=== PATIENT | female | born 1985 | race African-American/Black ===

== ENCOUNTER 2017-12-13 10:18 | Emergency (ER) | payer OTHER ==
[2017-12-13] MEDS: IBUPROFEN 200 MG TAB PO (11:03)
== END 2017-12-13 11:45 | disposition home or self-care (01) ==
LOC: FTE 10:18
DX: R07.89 Other chest pain (principal)
CPT/HCPCS: 71045; 81025; 93005; 99284-25

== ENCOUNTER 2019-03-01 10:53 | Emergency (ER) | payer MEDICAID, OTHER ==
[2019-03-01] MEDS: DIPHTH/TET/ACEL PERTUSS (ADULT) 0.5 ML VIAL IM* (11:27)
[2019-03-01] MEDS: KETOROLAC 60 MG INJ IM (11:34)
[2019-03-01] MEDS: BACITRACIN 0.5%/ZINC 28.35 GM OINT TOP (13:16)
[2019-03-01] MEDS: BACITRACIN 0.9 GM OINT TOP (13:16)
== END 2019-03-01 13:39 | disposition home or self-care (01) ==
LOC: FTE 10:53
DX: S61.210A Laceration without foreign body of right index finger without damage to nail, initial encounter (principal); W23.0XXA Caught, crushed, jammed, or pinched between moving objects, initial encounter; Y92.810 Car as the place of occurrence of the external cause
CPT/HCPCS: 64450; 73140; 81025; 90471; 90715; 96372; 99284-25